=== PATIENT | female | born 1990 | race African-American/Black ===

== ENCOUNTER 2019-04-21 09:47 | Emergency (ER) | payer SELFPAY ==
[~2019-04-21] VITALS: Ht 170.2 cm; Wt 90.5 kg
[2019-04-21] MEDS ORDERED: TRIAMCINOLONE 0.1% 15 GM CREAM TP ONE (11:30)
[2019-04-21] MEDS ORDERED: PredniSONE 20 MG TABLET PO ONE (11:30)
[2019-04-21 11:45] VITALS: BP 118/80
== END 2019-04-21 12:20 | disposition home or self-care (01) ==
LOC: EMS 09:52
DX: L23.9 Allergic contact dermatitis, unspecified cause (principal); Z88.8 Allergy status to other drugs, medicaments and biological substances
CPT/HCPCS: 99283; J7512